=== PATIENT | female | born 1960 | race African-American/Black ===

== ENCOUNTER 2022-08-30 16:57 | Inpatient (IN) | payer MEDICARE, MEDICAID ==
[~2022-08-30] VITALS: Ht 165.1 cm; Wt 67.1 kg
[2022-08-30 00:30] VITALS: BP 165/104
[~2022-08-30 16:57] MED LIST: CLON0.1T PO; COR6 PO; DIPH25CA83 PO; REN400 PO
[2022-08-30 18:28] LABS: CHLORIDE 107 mEq/L (98-107)
[2022-08-30 18:54] LABS: BG BASE EXCESS -13.4 mmol/L (-2.0-2.0); BG CARBOXYHEMOGLOBIN 0.1 % (0.5-1.5); BG DEOXYHEMOGLOBIN 9.4 % (0.0-5.0); BG FRACTION INSPIRED OXYGEN 36; BG HCO3 ACT 10.6 mmol/L (22.0-26.0); BG METHEMOGLOBIN 0.4 % (0.0-1.5); BG OXYGEN SATURATION 90.6 % (92.0-98.5); BG OXYHEMOGLOBIN 90.1 % (94.0-97.0); BG PCO2 19.9 mmHg (35.0-45.0); BG PH 7.346 (7.350-7.450); BG PO2 68.2 mmHg (75.0-100.0); BG SAMPLE SITE RIGHT BRACHIAL; BG TOTAL HEMOGLOBIN 8.6 g/dL (12.0-18.0); BG VENT MODE NASAL CANNULA
[2022-08-30] MEDS ORDERED: ALBUTEROL (0.083%) 2.5MG/3ML NEB HHN ONE (19:00)
[2022-08-30] MEDS ORDERED: CALCIUM CHLORIDE 1GM/10ML SYR IV ONE (19:00)
[2022-08-30 19:49] LABS: MEAN CORPUSCULAR HEMOGLOBIN 28.5 pg (28.0-32.0); MEAN CORPUSCULAR VOLUME 92.6 fL (81.0-99.0); MEAN PLATELET VOLUME 9.2 fl (7.4-10.4); PLATELET 267 x1000/uL (130-400); RED BLOOD CELL COUNT 2.81 mill/uL (4.2-5.4); RED CELL DISTRIBUTION WIDTH 15.6 % (11.6-14.6)
[2022-08-30] MEDS ORDERED: NICARDIPINE 40MG/200ML PREMIX 200 ML IV SCH (20:00)
[2022-08-30 20:28] LABS: INR 1.2; PARTIAL THROMBOPLASTIN TIME 34.5 sec (23.4-31.0); PROTHROMBIN TIME 12.9 sec (9.6-11.0)
[2022-08-30 21:12] LABS: PLATELET ESTIMATE NORMAL
[2022-08-30] MEDS ORDERED: SODIUM BICARBONATE 8.4% 1 MEQ/ML 50ML SYR IV NR (22:15)
[2022-08-30] MEDS ORDERED: MANNITOL 12.5G (25%) VIAL 50ML IV SCH (22:30)
[2022-08-30] MEDS ORDERED: GUAIFENESIN 200MG/10ML SUGAR FREE UDC PO PRN (22:45)
[2022-08-30] MEDS ORDERED: DOCUSATE SODIUM 100MG CAPSULE PO PRN (22:45)
[2022-08-30] MEDS ORDERED: ACETAMINOPHEN 325MG TABLET PO PRN (22:45)
[2022-08-30 23:12] LABS: HEPATITIS B SURFACE AB 582.2 mIU/mL
[2022-08-30 23:22] LABS: HEPATITIS B SURFACE ANTIGEN NEGATIVE
[2022-08-31] VITALS (71 sets, daily range): BP systolic 108–225; BP diastolic 64–155
[2022-08-31 00:14] LABS: TOTAL IRON BINDING CAPACITY 266 ug/dL (250-450)
[2022-08-31] MEDS ORDERED: DIPHENHYDRAMINE 50MG/ML VIAL IV NR (01:00)
[2022-08-31 01:42] LABS: FOLIC ACID (FOLATE) SERUM 13.3 ng/mL (>5.38)
[2022-08-31 05:42] LABS: BASOPHILS % 0.8 % (0.0-2.0); EOSINOPHILS % 0.5 % (0.0-5.0); HEMATOCRIT. 21.9 % (36.0-48.0); HEMOGLOBIN. 7.3 g/dL (12.0-16.0); LYMPHOCYTES % 7.8 % (20.0-50.0); MEAN CORPUSCULAR HEMOGLOBIN 28.3 pg (28.0-32.0); MEAN CORPUSCULAR VOLUME 84.7 fL (81.0-99.0); MEAN PLATELET VOLUME 8.5 fl (7.4-10.4); MONOCYTES % 7.5 % (2.0-8.0); NEUTROPHILS % 83.4 % (40.0-76.0); PLATELET 277 x1000/uL (130-400); RED BLOOD CELL COUNT 2.58 mill/uL (4.2-5.4)
[2022-08-31 05:46] LABS: CHLORIDE 101 mEq/L (98-107)
[2022-08-31 06:04] LABS: CREATINE KINASE 129 IU/L (26-192); CREATINE KINASE MB FRACTION 3.4 ng/mL (0.5-3.6); PHOSPHORUS 5.9 mg/dL (2.5-4.9); T4 FREE 1.11 ng/dL (0.76-1.46)
[2022-08-31] MEDS ORDERED: NALOXONE HCL 0.4MG/ML VIAL IV PRN (07:45)
[2022-08-31] MEDS: MORPHINE SULFATE 2 MG/ML CPJ (NOT FOR IM USE) IV PRN ×3 (08:28→23:21)
[2022-08-31] MEDS ORDERED: NICARDIPINE 100 MG in SODIUM CHLORIDE 0.9% 60 ML IV PRN (09:00)
[2022-08-31] MEDS ORDERED: ASPIRIN 81MG TABLET PO SCH (09:00)
[2022-08-31] MEDS ORDERED: ENOXAPARIN 30MG/0.3ML SYR SUBCUT SCH (09:00)
[2022-08-31] MEDS ORDERED: CARVEDILOL 6.25 MG TABLET PO SCH (09:00)
[2022-08-31] MEDS: CLONIDINE 0.1MG TABLET PO SCH ×3 (09:29→17:18)
[2022-08-31] MEDS ORDERED: AMLODIPINE 5MG TABLET PO SCH (10:15)
[2022-08-31] MEDS ORDERED: BUDESONIDE 0.5MG/2ML NEB HHN SCH (11:15)
[2022-08-31] MEDS ORDERED: FERROUS SULFATE 325MG TABLET PO SCH (12:00)
[2022-08-31] MEDS: AZITHROMYCIN 500 MG in DEXT 5% WATER 250 ML IV SCH (13:05)
[2022-08-31] MEDS: HYDRALAZINE HCL 50MG TABLET PO SCH ×2 (13:47→21:41)
[2022-08-31] MEDS: PANTOPRAZOLE SODIUM 40 MG/VIAL IV SCH (13:47)
[2022-08-31] MEDS: IPRATROPIUM/ALBUTEROL 0.5-3(2.5)MG/3ML NEB HHN SCH ×2 (13:53→21:14)
[2022-08-31] MEDS: ASCORBIC ACID 500 MG TABLET PO SCH (17:17)
[2022-08-31] MEDS: FERROUS SULFATE 325MG TABLET PO SCH (17:17)
[2022-08-31 18:14] LABS: CREATINE KINASE MB FRACTION 2.4 ng/mL (0.5-3.6)
[2022-08-31] MEDS ORDERED: FAMOTIDINE 20MG TABLET PO SCH (21:00)
[2022-08-31] MEDS: ATORVASTATIN CALCIUM 40MG TABLET PO SCH ×2 (21:00→21:41)
[2022-08-31] MEDS: AMLODIPINE 5MG TABLET PO SCH (21:40)
[2022-09-01] VITALS (54 sets, daily range): BP systolic 109–179; BP diastolic 67–100
[2022-09-01] MEDS: IPRATROPIUM/ALBUTEROL 0.5-3(2.5)MG/3ML NEB HHN SCH ×2 (03:20→20:15)
[2022-09-01] MEDS: MORPHINE SULFATE 2 MG/ML CPJ (NOT FOR IM USE) IV PRN ×2 (05:00→22:44)
[2022-09-01 05:49] LABS: CHLORIDE 103 mEq/L (98-107)
[2022-09-01] MEDS: HYDRALAZINE HCL 50MG TABLET PO SCH ×3 (06:00→21:19)
[2022-09-01] MEDS: FERROUS SULFATE 325MG TABLET PO SCH ×2 (06:39→18:09)
[2022-09-01] MEDS: ASCORBIC ACID 500 MG TABLET PO SCH ×2 (06:40→18:09)
[2022-09-01 07:15] LABS: PHOSPHORUS 8.6 mg/dL (2.5-4.9)
[2022-09-01] MEDS: CLONIDINE 0.1MG TABLET PO SCH ×3 (07:53→18:09)
[2022-09-01] MEDS: PANTOPRAZOLE SODIUM 40 MG/VIAL IV SCH (07:53)
[2022-09-01] MEDS: AMLODIPINE 5MG TABLET PO SCH ×2 (07:54→21:20)
[2022-09-01] MEDS: FOLIC ACID/VITAMIN B COMP W-C TABLET PO SCH (07:54)
[2022-09-01] MEDS: CALCIUM ACETATE 667MG CAPSULE PO SCH ×3 (07:54→18:09)
[2022-09-01] MEDS: DIPHENHYDRAMINE 50MG/ML VIAL IV PRN ×2 (08:45→23:56)
[2022-09-01] MEDS ORDERED: ZINC OXIDE 20% OINT 30GM TOP SCH (09:15)
[2022-09-01 10:27] LABS: BASOPHILS % 1.1 % (0.0-2.0); EOSINOPHILS % 10.1 % (0.0-5.0); LYMPHOCYTES % 23.4 % (20.0-50.0); MEAN CORPUSCULAR HEMOGLOBIN 28.4 pg (28.0-32.0); MEAN CORPUSCULAR VOLUME 85.8 fL (81.0-99.0); MEAN PLATELET VOLUME 8.8 fl (7.4-10.4); MONOCYTES % 9.7 % (2.0-8.0); NEUTROPHILS % 55.7 % (40.0-76.0); PLATELET 193 x1000/uL (130-400); RED BLOOD CELL COUNT 1.93 mill/uL (4.2-5.4); RED CELL DISTRIBUTION WIDTH 15.1 % (11.6-14.6)
[2022-09-01 10:34] LABS: HEMATOCRIT. 16.6 % (36.0-48.0); HEMOGLOBIN. 5.5 g/dL (12.0-16.0)
[2022-09-01 12:51] LABS: BG BASE EXCESS 1.3 mmol/L (-2.0-2.0); BG CARBOXYHEMOGLOBIN 0.4 % (0.5-1.5); BG DEOXYHEMOGLOBIN 3.9 % (0.0-5.0); BG HCO3 ACT 25.1 mmol/L (22.0-26.0); BG METHEMOGLOBIN 0.2 % (0.0-1.5); BG OXYGEN SATURATION 96.1 % (92.0-98.5); BG OXYHEMOGLOBIN 95.5 % (94.0-97.0); BG PCO2 35.5 mmHg (35.0-45.0); BG PH 7.467 (7.350-7.450); BG PO2 86.4 mmHg (75.0-100.0); BG SAMPLE SITE RIGHT BRACHIAL; BG TOTAL HEMOGLOBIN 6.9 g/dL (12.0-18.0); BG VENT MODE NASAL CANNULA
[2022-09-01] MEDS: AZITHROMYCIN 500 MG in DEXT 5% WATER 250 ML IV SCH (13:15)
[2022-09-01] MEDS: ATORVASTATIN CALCIUM 40MG TABLET PO SCH (21:20)
[2022-09-01 22:01] LABS: HEMATOCRIT 21.8 % (36.0-48.0); HEMOGLOBIN 7.3 g/dL (12.0-16.0)
[2022-09-02] VITALS (50 sets, daily range): BP systolic 139–188; BP diastolic 58–111
[2022-09-02] MEDS ORDERED: DEXT 5%/0.9% NACL 1,000 ML IV SCH (00:01)
[2022-09-02] MEDS: MORPHINE SULFATE 2 MG/ML CPJ (NOT FOR IM USE) IV PRN ×3 (02:45→22:22)
[2022-09-02] MEDS: IPRATROPIUM/ALBUTEROL 0.5-3(2.5)MG/3ML NEB HHN SCH ×2 (03:05→22:00)
[2022-09-02 04:39] LABS: BASOPHILS % 0.9 % (0.0-2.0); EOSINOPHILS % 13.9 % (0.0-5.0); HEMATOCRIT. 26.9 % (36.0-48.0); LYMPHOCYTES % 13.1 % (20.0-50.0); MEAN CORPUSCULAR HEMOGLOBIN 28.9 pg (28.0-32.0); MEAN CORPUSCULAR VOLUME 86.7 fL (81.0-99.0); MEAN PLATELET VOLUME 8.8 fl (7.4-10.4); MONOCYTES % 8.9 % (2.0-8.0); NEUTROPHILS % 63.2 % (40.0-76.0); PLATELET 208 x1000/uL (130-400); RED BLOOD CELL COUNT 3.11 mill/uL (4.2-5.4); RED CELL DISTRIBUTION WIDTH 14.6 % (11.6-14.6)
[2022-09-02 04:47] LABS: INR 1.1; PROTHROMBIN TIME 11.9 sec (9.6-11.0)
[2022-09-02 05:11] LABS: CHLORIDE 104 mEq/L (98-107); PHOSPHORUS 6.8 mg/dL (2.5-4.9)
[2022-09-02] MEDS: HYDRALAZINE HCL 50MG TABLET PO SCH ×4 (06:00→21:27)
[2022-09-02] MEDS: FERROUS SULFATE 325MG TABLET PO SCH ×2 (06:45→17:45)
[2022-09-02] MEDS: ASCORBIC ACID 500 MG TABLET PO SCH ×2 (06:45→17:45)
[2022-09-02] MEDS ORDERED: HYDRALAZINE 20MG/ML VIAL IV SCH (08:00)
[2022-09-02] MEDS: PANTOPRAZOLE SODIUM 40 MG/VIAL IV SCH (08:46)
[2022-09-02] MEDS: CLONIDINE 0.1MG TABLET PO SCH ×3 (09:00→17:46)
[2022-09-02] MEDS: CALCIUM ACETATE 667MG CAPSULE PO SCH ×3 (09:00→17:45)
[2022-09-02] MEDS: AMLODIPINE 5MG TABLET PO SCH ×3 (09:00→21:22)
[2022-09-02] MEDS: FOLIC ACID/VITAMIN B COMP W-C TABLET PO SCH (09:00)
[2022-09-02] MEDS: AZITHROMYCIN 500 MG in DEXT 5% WATER 250 ML IV SCH (12:23)
[2022-09-02] MEDS: ATORVASTATIN CALCIUM 40MG TABLET PO SCH (21:23)
[2022-09-02] MEDS: CLONIDINE 0.1MG TABLET PO PRN (22:22)
[2022-09-03] VITALS (41 sets, daily range): BP systolic 128–169; BP diastolic 78–104
[2022-09-03] MEDS ORDERED: DEXT 5%/0.9% NACL 1,000 ML IV SCH (00:01)
[2022-09-03] MEDS: IPRATROPIUM/ALBUTEROL 0.5-3(2.5)MG/3ML NEB HHN SCH ×4 (03:25→20:50)
[2022-09-03 03:47] LABS: BASOPHILS % 1.1 % (0.0-2.0); EOSINOPHILS % 17.5 % (0.0-5.0); HEMOGLOBIN. 10.3 g/dL (12.0-16.0); LYMPHOCYTES % 14.3 % (20.0-50.0); MEAN CORPUSCULAR HEMOGLOBIN 29.7 pg (28.0-32.0); MEAN CORPUSCULAR VOLUME 86.5 fL (81.0-99.0); MEAN PLATELET VOLUME 8.5 fl (7.4-10.4); MONOCYTES % 7.7 % (2.0-8.0); NEUTROPHILS % 59.4 % (40.0-76.0); PLATELET 228 x1000/uL (130-400); RED BLOOD CELL COUNT 3.47 mill/uL (4.2-5.4); RED CELL DISTRIBUTION WIDTH 14.4 % (11.6-14.6)
[2022-09-03 03:48] LABS: INR 1.1; PROTHROMBIN TIME 11.9 sec (9.6-11.0)
[2022-09-03 03:53] LABS: CHLORIDE 105 mEq/L (98-107)
[2022-09-03] MEDS: DIPHENHYDRAMINE 50MG/ML VIAL IV PRN ×2 (04:06→15:31)
[2022-09-03] MEDS: CLONIDINE 0.1MG TABLET PO PRN (04:18)
[2022-09-03] MEDS: MORPHINE SULFATE 2 MG/ML CPJ (NOT FOR IM USE) IV PRN (04:18)
[2022-09-03] MEDS: HYDRALAZINE HCL 50MG TABLET PO SCH (06:00)
[2022-09-03] MEDS: FERROUS SULFATE 325MG TABLET PO SCH ×2 (06:18→10:10)
[2022-09-03] MEDS: ASCORBIC ACID 500 MG TABLET PO SCH ×2 (06:18→10:10)
[2022-09-03] MEDS ORDERED: HYDRALAZINE 20MG/ML VIAL IV PRN (07:30)
[2022-09-03] MEDS ORDERED: DEXT 5%/0.45% NACL 1000ML 1,000 ML IV SCH (08:30)
[2022-09-03] MEDS: AMLODIPINE 5MG TABLET PO SCH ×2 (09:00→21:51)
[2022-09-03] MEDS: CALCIUM ACETATE 667MG CAPSULE PO SCH ×3 (09:00→17:53)
[2022-09-03] MEDS: CLONIDINE 0.1MG TABLET PO SCH ×3 (09:00→17:53)
[2022-09-03] MEDS: FOLIC ACID/VITAMIN B COMP W-C TABLET PO SCH (09:00)
[2022-09-03] MEDS: PANTOPRAZOLE SODIUM 40 MG/VIAL IV SCH (09:37)
[2022-09-03] MEDS ORDERED: DEXAMETHASONE 4MG/ML 1ML VIAL ONE (13:17)
[2022-09-03] MEDS ORDERED: ONDANSETRON HCL 4MG/2ML INJ ONE (13:17)
[2022-09-03] MEDS ORDERED: MIDAZOLAM HCL 2 MG/2 ML VIAL ONE (13:18)
[2022-09-03] MEDS ORDERED: PROPOFOL 200MG/20ML VIAL IV ONE (13:21)
[2022-09-03] MEDS ORDERED: LIDOCAINE HCL 1% 10 MG/ML 10ML VIAL ONE (13:21)
[2022-09-03] MEDS ORDERED: LIDOCAINE HCL 1% 20ML VIAL (Pyxis) INJ ONE (14:31)
[2022-09-03] MEDS ORDERED: FENTANYL CITRATE/PF 50MCG/ML 2ML VIAL ONE (14:48)
[2022-09-03] MEDS ORDERED: ACETAMINOPHEN 325MG TABLET PO PRN (15:15)
[2022-09-03] MEDS ORDERED: ATROPINE SULFATE 1MG/10ML SYR IV PRN (15:15)
[2022-09-03] MEDS: LORAZEPAM 2MG/ML CPJ IV PRN (16:56)
[2022-09-03] MEDS: SUCRALFATE 1 G/10 ML UDC PO SCH ×2 (17:53→21:48)
[2022-09-03] MEDS: ATORVASTATIN CALCIUM 40MG TABLET PO SCH (21:48)
[2022-09-04] VITALS (49 sets, daily range): BP systolic 101–179; BP diastolic 55–106
[2022-09-04] MEDS: LORAZEPAM 2MG/ML CPJ IV PRN ×3 (00:12→18:06)
[2022-09-04] MEDS: IPRATROPIUM/ALBUTEROL 0.5-3(2.5)MG/3ML NEB HHN SCH ×3 (02:12→14:40)
[2022-09-04 05:13] LABS: BASOPHILS % 0.5 % (0.0-2.0); EOSINOPHILS % 1.2 % (0.0-5.0); HEMATOCRIT. 26.4 % (36.0-48.0); LYMPHOCYTES % 11.2 % (20.0-50.0); MEAN CORPUSCULAR HEMOGLOBIN 29.3 pg (28.0-32.0); MEAN CORPUSCULAR VOLUME 85.6 fL (81.0-99.0); MEAN PLATELET VOLUME 8.6 fl (7.4-10.4); MONOCYTES % 7.7 % (2.0-8.0); NEUTROPHILS % 79.4 % (40.0-76.0); PLATELET 231 x1000/uL (130-400); RED BLOOD CELL COUNT 3.08 mill/uL (4.2-5.4); RED CELL DISTRIBUTION WIDTH 14.1 % (11.6-14.6)
[2022-09-04] MEDS: MORPHINE SULFATE 2 MG/ML CPJ (NOT FOR IM USE) IV PRN ×2 (05:15→09:21)
[2022-09-04] MEDS: SUCRALFATE 1 G/10 ML UDC PO SCH ×4 (06:20→21:59)
[2022-09-04] MEDS: FERROUS SULFATE 325MG TABLET PO SCH ×2 (07:00→16:09)
[2022-09-04] MEDS: ASCORBIC ACID 500 MG TABLET PO SCH ×2 (07:00→16:09)
[2022-09-04] MEDS ORDERED: HYDROCODONE/ACETAMINOPHEN 5/325MG TABLET PO PRN (08:45)
[2022-09-04] MEDS: CALCIUM ACETATE 667MG CAPSULE PO SCH ×3 (08:57→16:09)
[2022-09-04] MEDS: FOLIC ACID/VITAMIN B COMP W-C TABLET PO SCH (08:57)
[2022-09-04] MEDS: AMLODIPINE 2.5MG TABLET PO SCH ×2 (08:57→22:00)
[2022-09-04] MEDS: PANTOPRAZOLE SODIUM 40 MG/VIAL IV SCH (09:21)
[2022-09-04] MEDS: DIPHENHYDRAMINE 50MG/ML VIAL IV PRN ×3 (09:59→23:57)
[2022-09-04] MEDS ORDERED: IOHEXOL-350 100 ML BOTTLE ONE (12:37)
[2022-09-04 13:22] LABS: BASOPHILS % 0.4 % (0.0-2.0); EOSINOPHILS % 6.3 % (0.0-5.0); HEMATOCRIT. 27.1 % (36.0-48.0); LYMPHOCYTES % 11.2 % (20.0-50.0); MEAN CORPUSCULAR HEMOGLOBIN 29.1 pg (28.0-32.0); MEAN CORPUSCULAR VOLUME 87.2 fL (81.0-99.0); MEAN PLATELET VOLUME 8.2 fl (7.4-10.4); MONOCYTES % 5.8 % (2.0-8.0); NEUTROPHILS % 76.3 % (40.0-76.0); PLATELET 225 x1000/uL (130-400); RED BLOOD CELL COUNT 3.11 mill/uL (4.2-5.4); RED CELL DISTRIBUTION WIDTH 14.3 % (11.6-14.6)
[2022-09-04] MEDS: CLONIDINE 0.1MG TABLET PO SCH (16:09)
[2022-09-04] MEDS: CLONIDINE 0.1MG TABLET PO PRN (19:44)
[2022-09-04] MEDS: ATORVASTATIN CALCIUM 40MG TABLET PO SCH (22:00)
[2022-09-05] VITALS (47 sets, daily range): BP systolic 127–185; BP diastolic 75–118
[2022-09-05] MEDS: IPRATROPIUM/ALBUTEROL 0.5-3(2.5)MG/3ML NEB HHN SCH ×3 (01:00→14:00)
[2022-09-05] MEDS: CLONIDINE 0.1MG TABLET PO SCH ×2 (05:13→16:43)
[2022-09-05] MEDS: THROAT LOZENGES-BENZOCAINE/MENTH/CETYLPYRD CL LOZENGES MM PRN ×2 (05:14→13:13)
[2022-09-05 05:41] LABS: BASOPHILS % 0.7 % (0.0-2.0); EOSINOPHILS % 11.1 % (0.0-5.0); HEMATOCRIT. 25.9 % (36.0-48.0); HEMOGLOBIN. 8.7 g/dL (12.0-16.0); MEAN CORPUSCULAR HEMOGLOBIN 29.1 pg (28.0-32.0); MEAN CORPUSCULAR VOLUME 86.5 fL (81.0-99.0); MEAN PLATELET VOLUME 8.2 fl (7.4-10.4); MONOCYTES % 7.4 % (2.0-8.0); NEUTROPHILS % 67.8 % (40.0-76.0); PLATELET 215 x1000/uL (130-400); RED BLOOD CELL COUNT 2.99 mill/uL (4.2-5.4); RED CELL DISTRIBUTION WIDTH 14.2 % (11.6-14.6)
[2022-09-05] MEDS: SUCRALFATE 1 G/10 ML UDC PO SCH ×4 (06:11→21:51)
[2022-09-05] MEDS: CALCIUM ACETATE 667MG CAPSULE PO SCH ×3 (10:09→16:43)
[2022-09-05] MEDS: FOLIC ACID/VITAMIN B COMP W-C TABLET PO SCH (10:09)
[2022-09-05] MEDS: ASCORBIC ACID 500 MG TABLET PO SCH ×2 (10:09→16:43)
[2022-09-05] MEDS: PANTOPRAZOLE SODIUM 40 MG/VIAL IV SCH (10:09)
[2022-09-05] MEDS: AMLODIPINE 2.5MG TABLET PO SCH ×2 (10:10→21:51)
[2022-09-05] MEDS: FERROUS SULFATE 325MG TABLET PO SCH ×2 (10:10→16:43)
[2022-09-05] MEDS: DIPHENHYDRAMINE 50MG/ML VIAL IV PRN ×2 (10:56→15:17)
[2022-09-05] MEDS: MORPHINE SULFATE 2 MG/ML CPJ (NOT FOR IM USE) IV PRN ×2 (13:13→22:05)
[2022-09-05] MEDS: LORAZEPAM 2MG/ML CPJ IV PRN (17:09)
[2022-09-05] MEDS: ATORVASTATIN CALCIUM 40MG TABLET PO SCH (21:51)
[2022-09-06] VITALS: BP 159/98
[2022-09-06] MEDS: CLONIDINE 0.1MG TABLET PO PRN (01:10)
[2022-09-06] MEDS: DIPHENHYDRAMINE 50MG/ML VIAL IV PRN ×3 (01:10→20:27)
[2022-09-06] MEDS: THROAT LOZENGES-BENZOCAINE/MENTH/CETYLPYRD CL LOZENGES MM PRN (01:24)
[2022-09-06 04:00] VITALS: BP 133/77
[2022-09-06] MEDS: SUCRALFATE 1 G/10 ML UDC PO SCH ×4 (06:11→20:27)
[2022-09-06] MEDS: CLONIDINE 0.1MG TABLET PO SCH ×2 (06:11→17:57)
[2022-09-06] MEDS: MORPHINE SULFATE 2 MG/ML CPJ (NOT FOR IM USE) IV PRN ×2 (06:12→23:08)
[2022-09-06] MEDS: ASCORBIC ACID 500 MG TABLET PO SCH ×2 (07:39→17:56)
[2022-09-06] MEDS: FERROUS SULFATE 325MG TABLET PO SCH ×2 (07:39→17:56)
[2022-09-06 08:00] VITALS: BP 148/91
[2022-09-06] MEDS: FOLIC ACID/VITAMIN B COMP W-C TABLET PO SCH (08:55)
[2022-09-06] MEDS: AMLODIPINE 2.5MG TABLET PO SCH (08:55)
[2022-09-06] MEDS: PANTOPRAZOLE SODIUM 40 MG/VIAL IV SCH (08:55)
[2022-09-06] MEDS: CALCIUM ACETATE 667MG CAPSULE PO SCH ×3 (08:58→17:57)
[2022-09-06 12:00] VITALS: BP 149/93
[2022-09-06 12:27] LABS: BASOPHILS % 0.5 % (0.0-2.0); HEMATOCRIT. 28.8 % (36.0-48.0); HEMOGLOBIN. 9.6 g/dL (12.0-16.0); LYMPHOCYTES % 12.4 % (20.0-50.0); MEAN CORPUSCULAR HEMOGLOBIN 28.9 pg (28.0-32.0); MEAN CORPUSCULAR VOLUME 86.5 fL (81.0-99.0); MEAN PLATELET VOLUME 8.6 fl (7.4-10.4); MONOCYTES % 8.2 % (2.0-8.0); NEUTROPHILS % 63.9 % (40.0-76.0); PLATELET 240 x1000/uL (130-400); RED BLOOD CELL COUNT 3.33 mill/uL (4.2-5.4); RED CELL DISTRIBUTION WIDTH 14.5 % (11.6-14.6)
[2022-09-06] MEDS ORDERED: SORBITOL 70% SOLN 30ML PO NR (12:30)
[2022-09-06] MEDS ORDERED: BISACODYL 5MG TABLET PO NR (12:30)
[2022-09-06] MEDS: LORAZEPAM 2MG/ML CPJ IV PRN ×2 (13:05→21:53)
[2022-09-06 16:00] VITALS: BP 143/92
[2022-09-06] MEDS ORDERED: NA PHOS,M-B/NA PHOS,DI-BA ENEMA 118ML PR ONE (17:45)
[2022-09-06 20:00] VITALS: BP 149/89
[2022-09-06] MEDS: ATORVASTATIN CALCIUM 40MG TABLET PO SCH (20:27)
[2022-09-06] MEDS: AMLODIPINE 5MG TABLET PO SCH (20:27)
[2022-09-07] VITALS: BP 146/88
[2022-09-07 04:00] VITALS: BP 160/95
[2022-09-07 05:29] LABS: BASOPHILS % 0.6 % (0.0-2.0); EOSINOPHILS % 13.9 % (0.0-5.0); HEMATOCRIT. 30.2 % (36.0-48.0); HEMOGLOBIN. 10.1 g/dL (12.0-16.0); LYMPHOCYTES % 17.2 % (20.0-50.0); MEAN CORPUSCULAR HEMOGLOBIN 28.7 pg (28.0-32.0); MEAN CORPUSCULAR VOLUME 86.1 fL (81.0-99.0); MEAN PLATELET VOLUME 8.5 fl (7.4-10.4); MONOCYTES % 8.9 % (2.0-8.0); NEUTROPHILS % 59.4 % (40.0-76.0); PLATELET 240 x1000/uL (130-400); RED CELL DISTRIBUTION WIDTH 14.2 % (11.6-14.6)
[2022-09-07] MEDS: SUCRALFATE 1 G/10 ML UDC PO SCH ×4 (05:45→21:08)
[2022-09-07] MEDS: CLONIDINE 0.1MG TABLET PO SCH ×2 (05:46→12:25)
[2022-09-07] MEDS: LORAZEPAM 2MG/ML CPJ IV PRN ×2 (05:46→20:48)
[2022-09-07 06:12] LABS: PHOSPHORUS 5.6 mg/dL (2.5-4.9)
[2022-09-07 08:00] VITALS: BP 141/91
[2022-09-07] MEDS: PANTOPRAZOLE SODIUM 40 MG/VIAL IV SCH (09:01)
[2022-09-07] MEDS: ASCORBIC ACID 500 MG TABLET PO SCH ×2 (09:01→16:39)
[2022-09-07] MEDS: FERROUS SULFATE 325MG TABLET PO SCH ×2 (09:01→16:39)
[2022-09-07] MEDS: AMLODIPINE 5MG TABLET PO SCH ×2 (09:02→21:08)
[2022-09-07] MEDS: CALCIUM ACETATE 667MG CAPSULE PO SCH ×3 (09:02→16:40)
[2022-09-07] MEDS: FOLIC ACID/VITAMIN B COMP W-C TABLET PO SCH (09:02)
[2022-09-07 12:00] VITALS: BP 137/83
[2022-09-07] MEDS: DIPHENHYDRAMINE 50MG/ML VIAL IV PRN ×2 (12:33→20:04)
[2022-09-07] MEDS ORDERED: SORBITOL 70% SOLN 30ML PO NR (15:15)
[2022-09-07 16:00] VITALS: BP 166/102
[2022-09-07] MEDS: CLONIDINE 0.1MG TABLET PO PRN (16:39)
[2022-09-07 20:05] VITALS: BP 163/101
[2022-09-07] MEDS: ATORVASTATIN CALCIUM 40MG TABLET PO SCH ×2 (21:00→21:08)
[2022-09-08] VITALS (15 sets, daily range): BP systolic 137–168; BP diastolic 76–111
[2022-09-08] MEDS: CLONIDINE 0.1MG TABLET PO SCH ×3 (01:55→18:23)
[2022-09-08] MEDS: DIPHENHYDRAMINE 50MG/ML VIAL IV PRN ×2 (03:52→12:40)
[2022-09-08] MEDS: SUCRALFATE 1 G/10 ML UDC PO SCH ×3 (07:00→17:05)
[2022-09-08] MEDS: FERROUS SULFATE 325MG TABLET PO SCH ×2 (07:36→18:20)
[2022-09-08] MEDS: ASCORBIC ACID 500 MG TABLET PO SCH ×2 (07:36→18:20)
[2022-09-08] MEDS: CALCIUM ACETATE 667MG CAPSULE PO SCH ×4 (09:00→17:05)
[2022-09-08] MEDS: PANTOPRAZOLE SODIUM 40 MG/VIAL IV SCH (09:56)
[2022-09-08] MEDS: FOLIC ACID/VITAMIN B COMP W-C TABLET PO SCH (09:56)
[2022-09-08] MEDS: AMLODIPINE 5MG TABLET PO SCH (09:57)
[2022-09-08] MEDS: MORPHINE SULFATE 2 MG/ML CPJ (NOT FOR IM USE) IV PRN (10:27)
[2022-09-08] MEDS ORDERED: SORBITOL 70% SOLN 30ML PO NR (15:30)
[2022-09-08 16:15] LABS: BASOPHILS % 0.6 % (0.0-2.0); EOSINOPHILS % 13.7 % (0.0-5.0); HEMATOCRIT. 31.3 % (36.0-48.0); HEMOGLOBIN. 10.5 g/dL (12.0-16.0); LYMPHOCYTES % 11.2 % (20.0-50.0); MEAN CORPUSCULAR VOLUME 86.6 fL (81.0-99.0); MEAN PLATELET VOLUME 8.3 fl (7.4-10.4); MONOCYTES % 8.2 % (2.0-8.0); NEUTROPHILS % 66.3 % (40.0-76.0); PLATELET 260 x1000/uL (130-400); RED BLOOD CELL COUNT 3.61 mill/uL (4.2-5.4); RED CELL DISTRIBUTION WIDTH 13.9 % (11.6-14.6)
== END 2022-09-08 19:47 | disposition home or self-care (01) | DRG 189 ==
LOC: ER 16:57 → MICUSO 19:50 → EDBEDREQTM 19:51 → EDBEDREQ 19:51 → EDBEDREQSVC 19:51 → ENRESERV 23:43 → MICUSO 08-31 01:27 → 3WST 09-05 16:18
PROVIDERS: ADMIT Internal Medicine; ATTEND Internal Medicine
PROC: 5A09357 Assistance with Respiratory Ventilation, Less than 24 Consecutive Hours, Continuous Positive Airway Pressure (ICD-10-PCS; 2022-08-30)
PROC: 5A1D70Z Performance of Urinary Filtration, Intermittent, Less than 6 Hours Per Day (ICD-10-PCS; 2022-08-30)
PROC: 02HV33Z Insertion of Infusion Device into Superior Vena Cava, Percutaneous Approach (ICD-10-PCS; 2022-08-31)
PROC: B548ZZA Ultrasonography of Superior Vena Cava, Guidance (ICD-10-PCS; 2022-08-31)
PROC: 5A1D70Z Performance of Urinary Filtration, Intermittent, Less than 6 Hours Per Day (ICD-10-PCS; 2022-08-31)
PROC: 30233N1 Transfusion of Nonautologous Red Blood Cells into Peripheral Vein, Percutaneous Approach (ICD-10-PCS; 2022-09-01)
PROC: 5A1D70Z Performance of Urinary Filtration, Intermittent, Less than 6 Hours Per Day (ICD-10-PCS; 2022-09-01)
PROC: 0DB98ZX Excision of Duodenum, Via Natural or Artificial Opening Endoscopic, Diagnostic (ICD-10-PCS; principal; 2022-09-03)
PROC: 0DB78ZX Excision of Stomach, Pylorus, Via Natural or Artificial Opening Endoscopic, Diagnostic (ICD-10-PCS; 2022-09-03)
PROC: 4A023N6 Measurement of Cardiac Sampling and Pressure, Right Heart, Percutaneous Approach (ICD-10-PCS; 2022-09-03)
PROC: 5A1D70Z Performance of Urinary Filtration, Intermittent, Less than 6 Hours Per Day (ICD-10-PCS; 2022-09-03)
PROC: 5A1D70Z Performance of Urinary Filtration, Intermittent, Less than 6 Hours Per Day (ICD-10-PCS; 2022-09-04)
PROC: 5A1D70Z Performance of Urinary Filtration, Intermittent, Less than 6 Hours Per Day (ICD-10-PCS; 2022-09-05)
PROC: 5A1D70Z Performance of Urinary Filtration, Intermittent, Less than 6 Hours Per Day (ICD-10-PCS; 2022-09-08)
DX: J96.01 Acute respiratory failure with hypoxia (principal); J18.1 Lobar pneumonia, unspecified organism; N18.6 End stage renal disease; K25.4 Chronic or unspecified gastric ulcer with hemorrhage; I13.2 Hypertensive heart and chronic kidney disease with heart failure and with stage 5 chronic kidney disease, or end stage renal disease; I31.39 Other pericardial effusion (noninflammatory); I16.9 Hypertensive crisis, unspecified; E87.20 Acidosis, unspecified; E87.5 Hyperkalemia; Z20.822 Contact with and (suspected) exposure to COVID-19; D63.8 Anemia in other chronic diseases classified elsewhere; E78.5 Hyperlipidemia, unspecified; I08.1 Rheumatic disorders of both mitral and tricuspid valves; I50.9 Heart failure, unspecified; I27.20 Pulmonary hypertension, unspecified; K57.30 Diverticulosis of large intestine without perforation or abscess without bleeding; D25.9 Leiomyoma of uterus, unspecified; K29.60 Other gastritis without bleeding; Z86.73 Personal history of transient ischemic attack (TIA), and cerebral infarction without residual deficits; Z28.310 Unvaccinated for COVID-19; Z88.0 Allergy status to penicillin; Z99.2 Dependence on renal dialysis; Z91.15 Patient's noncompliance with renal dialysis; Z91.199 Patient's noncompliance with other medical treatment and regimen due to unspecified reason; Z79.899 Other long term (current) drug therapy
CPT/HCPCS: 36415; 36573; 36600; 71045; 74174; 74176; 76604; 76700; 76857; 78580; 80048; 80053; 80061; 82375; 82550; 82553; 82607; 82728; 82746; 82805; 83540; 83550; 83605; 83735; 83880; 84100; 84145; 84439; 84443; 84484; 85014; 85018; 85025; 85379; 86706; 86803; 86850; 86870; 86900; 86920; 87340; 87426; 88305; 90935; 93005; 93306; 93451; 93970; 94640; 94660; 97161; 97165; 99291; A6261; C1725; C1893; C9113; C9803; J0360; J0456; J1100; J1200; J1644; J2060; J2150; J2250; J2270; J2405; J2704; J3010; J3490; J7042; J7060; J7626; P9016; Q9967

== ENCOUNTER 2023-11-05 16:51 | Inpatient (IN) | payer MEDICARE, MEDICAID ==
[~2023-11-05] VITALS: Ht 167.6 cm; Wt 52.6 kg
[~2023-11-05 16:51] MED LIST changes: +AMLO10TA80 PO; -CLON0.1T PO; -COR6 PO; -DIPH25CA83 PO; +LIP40 PO; +NEPVIT PO; +NIFE-33 PO; +SEVE800T8 PO
[2023-11-05 18:00] VITALS: BP 142/82; PULSE 84; RESP 19; TEMP 98
[2023-11-05] MEDS ORDERED: LORATADINE 10MG TABLET PO SCH (19:30)
[2023-11-05] MEDS ORDERED: HYDRALAZINE 20MG/ML VIAL IV PRN (19:30)
[2023-11-05] MEDS ORDERED: IPRATROPIUM/ALBUTEROL 0.5-3(2.5)MG/3ML NEB HHN PRN (19:30)
[2023-11-05 19:45] VITALS: BP 171/96; PULSE 73; RESP 20; TEMP 97.5
[2023-11-05] MEDS ORDERED: HYDRALAZINE 10 MG in SODIUM CHLORIDE 0.9% 49.5 ML IV PRN (19:45)
[2023-11-05] MEDS ORDERED: NALOXONE HCL 0.4MG/ML 1ML VIAL IV PRN (19:45)
[2023-11-05] MEDS ORDERED: MAGNESIUM/ALUMINUM HYDROXIDE/SIMETHICONE 30ML UDC PO PRN (19:45)
[2023-11-05] MEDS ORDERED: GUAIFENESIN 200MG/10ML SUGAR FREE UDC PO PRN (19:45)
[2023-11-05 20:00] VITALS: BP 176/95; PULSE 73; RESP 19; TEMP 97.6
[2023-11-05] MEDS: CLONIDINE 0.2MG TABLET PO PRN (20:23)
[2023-11-05] MEDS: ATORVASTATIN CALCIUM 40MG TABLET PO SCH (21:19)
[2023-11-05] MEDS: LEVETIRACETAM 250MG TABLET PO SCH (21:19)
[2023-11-05 22:00] VITALS: BP 123/75; PULSE 75; RESP 20; TEMP 98
[2023-11-05] MEDS: HYDRALAZINE HCL 25MG TABLET PO SCH (22:00)
[2023-11-05] MEDS: DIPHENHYDRAMINE 50MG/ML VIAL IV PRN (22:18)
[2023-11-06 07:40] LABS: CHLORIDE 98 mEq/L (98-107); POTASSIUM 4.3 mEq/L (3.5-5.1); SODIUM 136 mEq/L (136-145)
[2023-11-06 07:41] LABS: CALCIUM 7.8 mg/dL (8.7-10.4); CARBON DIOXIDE 24 mEq/L (21-32); HEMATOCRIT. 29.8 % (36.0-48.0); HEMOGLOBIN. 9.9 g/dL (12.0-16.0); MEAN CORPUSCULAR HEMOGLOBIN 27.6 pg (28.0-32.0); MEAN CORPUSCULAR HGB CONC 33.2 g/dL (31.0-37.0); MEAN CORPUSCULAR VOLUME 82.9 fL (81.0-99.0); MEAN PLATELET VOLUME 8.8 fl (7.4-10.4); PLATELET 145 x1000/uL (130-400); RED BLOOD CELL COUNT 3.59 mill/uL (4.2-5.4); RED CELL DISTRIBUTION WIDTH 18.6 % (11.6-14.6); WHITE BLOOD COUNT 3.8 x1000/uL (4.5-11.0)
[2023-11-06 07:46] LABS: GLUCOSE 93 mg/dL (70-105); UREA NITROGEN BLOOD 68 mg/dL (9-23)
[2023-11-06 07:47] LABS: DIFFERENTIAL COMMENT 1
[2023-11-06 07:48] LABS: ALANINE AMINOTRANSFERASE < 7 IU/L (10-49); ALBUMIN 3.5 g/dL (3.2-4.8); ASPARTATE AMINOTRANSFERASE 13 IU/L (<34); BILIRUBIN TOTAL 0.4 mg/dL (0.1-1.0)
[2023-11-06 07:49] LABS: PROTEIN TOTAL 5.7 g/dL (6.0-8.3)
[2023-11-06 07:52] LABS: CREATININE 12.1 mg/dL (0.6-1.0)
[2023-11-06 08:00] VITALS: BP 132/66; PULSE 72; RESP 20; TEMP 98.2
[2023-11-06] MEDS ORDERED: FAMOTIDINE 20MG/2ML VIAL IV SCH (09:00)
[2023-11-06] MEDS: FOLIC ACID 1MG TABLET PO SCH (09:03)
[2023-11-06] MEDS: NIFEDIPINE XL 30MG TAB PO SCH (09:03)
[2023-11-06] MEDS: SEVELAMER CARBONATE 800 MG TABLET PO SCH (09:03)
[2023-11-06 12:00] VITALS: BP 120/60; PULSE 76; RESP 20; TEMP 97.7
[2023-11-06] MEDS: HYDROCODONE/ACETAMINOPHEN 7.5/325MG TABLET PO PRN (13:51)
[2023-11-06 15:09] LABS: ANISOCYTOSIS 2+; PLATELET ESTIMATE NORMAL
[2023-11-06 16:00] VITALS: BP 130/65; PULSE 70; RESP 20; TEMP 96.6
[2023-11-06 20:00] VITALS: BP 165/102; PULSE 87; RESP 19; TEMP 97.5
[2023-11-06] MEDS: EPOETIN ALFA 4000UNITS/ML VIAL SUBCUT SCH (20:15)
[2023-11-06] MEDS: FAMOTIDINE 20MG TABLET PO SCH (20:15)
[2023-11-07] VITALS (15 sets, daily range): BP systolic 128–161; BP diastolic 8–94; PULSE 74–87; RESP 16–20; TEMP 97–101.7
[2023-11-07 07:25] LABS: BASOPHILS % 0.5 % (0.0-2.0); EOSINOPHILS % 14.4 % (0.0-5.0); HEMATOCRIT. 28.8 % (36.0-48.0); HEMOGLOBIN. 9.7 g/dL (12.0-16.0); LYMPHOCYTES % 14.9 % (20.0-50.0); MEAN CORPUSCULAR HEMOGLOBIN 27.9 pg (28.0-32.0); MEAN CORPUSCULAR HGB CONC 33.8 g/dL (31.0-37.0); MEAN CORPUSCULAR VOLUME 82.5 fL (81.0-99.0); MEAN PLATELET VOLUME 9.3 fl (7.4-10.4); MONOCYTES % 6.9 % (2.0-8.0); NEUTROPHILS % 63.3 % (40.0-76.0); PLATELET 145 x1000/uL (130-400); RED BLOOD CELL COUNT 3.49 mill/uL (4.2-5.4); RED CELL DISTRIBUTION WIDTH 18.5 % (11.6-14.6)
[2023-11-07 08:04] LABS: CALCIUM 7.4 mg/dL (8.7-10.4); CARBON DIOXIDE 24 mEq/L (21-32); CHLORIDE 98 mEq/L (98-107); POTASSIUM 4.3 mEq/L (3.5-5.1); SODIUM 137 mEq/L (136-145)
[2023-11-07 08:09] LABS: GLUCOSE 102 mg/dL (70-105)
[2023-11-07 08:10] LABS: UREA NITROGEN BLOOD 78 mg/dL (9-23)
[2023-11-07 08:20] LABS: HEPATITIS B SURFACE ANTIGEN NEGATIVE (Negative)
[2023-11-07 08:35] LABS: CREATININE 11.7 mg/dL (0.6-1.0)
[2023-11-07 08:38] LABS: PHOSPHORUS 8.1 mg/dL (2.5-4.9)
[2023-11-07 08:40] LABS: HEPATITIS A AB IGM NEGATIVE (Negative)
[2023-11-07 08:41] LABS: HEPATITIS B CORE AB IGM NEGATIVE (Negative)
[2023-11-07 08:42] LABS: HEPATITIS C AB NON REACTIVE (Neg) (Negative)
[2023-11-07] MEDS: ACETAMINOPHEN 325MG TABLET PO PRN (20:45)
[2023-11-08 08:00] VITALS: BP 146/79; PULSE 84; RESP 18; TEMP 99.2
[2023-11-08] MEDS: SEVELAMER CARBONATE 2.4 GM PO SCH (09:00)
[2023-11-08 11:40] LABS: CHLORIDE 97 mEq/L (98-107); POTASSIUM 3.7 mEq/L (3.5-5.1); SODIUM 134 mEq/L (136-145)
[2023-11-08 11:41] LABS: CALCIUM 7.9 mg/dL (8.7-10.4); CARBON DIOXIDE 22 mEq/L (21-32)
[2023-11-08 11:46] LABS: GLUCOSE 172 mg/dL (70-105)
[2023-11-08 11:47] LABS: CREATININE 10.4 mg/dL (0.6-1.0); UREA NITROGEN BLOOD 64 mg/dL (9-23)
[2023-11-08 11:48] LABS: ALANINE AMINOTRANSFERASE 7 IU/L (10-49); ALBUMIN 4.5 g/dL (3.2-4.8); ASPARTATE AMINOTRANSFERASE 18 IU/L (<34)
[2023-11-08 11:49] LABS: BILIRUBIN TOTAL 0.3 mg/dL (0.1-1.0); PHOSPHORUS 7.2 mg/dL (2.5-4.9); PROTEIN TOTAL 6.6 g/dL (6.0-8.3)
[2023-11-08 12:56] LABS: HEMATOCRIT 33.5 % (36.0-48.0); HEMOGLOBIN 11.2 g/dL (12.0-16.0); MEAN CORPUSCULAR HEMOGLOBIN 28.5 pg (28.0-32.0); MEAN CORPUSCULAR HGB CONC 33.4 g/dL (31.0-37.0); MEAN CORPUSCULAR VOLUME 85.4 fL (81.0-99.0); RED BLOOD CELL COUNT 3.93 mill/uL (4.2-5.4); RED CELL DISTRIBUTION WIDTH 18.7 % (11.6-14.6)
[2023-11-08 13:23] LABS: PLATELET 140 x1000/uL (130-400)
[2023-11-08] MEDS: TRAMADOL 50MG TABLET PO PRN (19:33)
[2023-11-08 20:00] VITALS: BP 159/95; PULSE 96; RESP 20; TEMP 97.6
[2023-11-08] MEDS: MELATONIN 3MG TABLET PO SCH (21:16)
[2023-11-09] VITALS (9 sets, daily range): BP systolic 102–186; BP diastolic 78–116; PULSE 97–121; RESP 16–20; TEMP 97.7–99.9
[2023-11-09 06:20] LABS: HEMATOCRIT 31.6 % (36.0-48.0); HEMOGLOBIN 10.7 g/dL (12.0-16.0); MEAN CORPUSCULAR HEMOGLOBIN 28.1 pg (28.0-32.0); MEAN CORPUSCULAR HGB CONC 33.9 g/dL (31.0-37.0); PLATELET 146 x1000/uL (130-400); RED CELL DISTRIBUTION WIDTH 18.9 % (11.6-14.6); WHITE BLOOD COUNT 4.9 x1000/uL (4.5-11.0)
[2023-11-09 06:51] LABS: CHLORIDE 96 mEq/L (98-107); POTASSIUM 4.1 mEq/L (3.5-5.1); SODIUM 135 mEq/L (136-145)
[2023-11-09 06:54] LABS: CARBON DIOXIDE 24 mEq/L (21-32)
[2023-11-09 06:55] LABS: CALCIUM 8.6 mg/dL (8.7-10.4)
[2023-11-09 06:59] LABS: GLUCOSE 135 mg/dL (70-105)
[2023-11-09 07:00] LABS: ALANINE AMINOTRANSFERASE < 7 IU/L (10-49); UREA NITROGEN BLOOD 71 mg/dL (9-23)
[2023-11-09 07:01] LABS: ALBUMIN 4.1 g/dL (3.2-4.8); ASPARTATE AMINOTRANSFERASE 16 IU/L (<34)
[2023-11-09 07:02] LABS: BILIRUBIN TOTAL 0.3 mg/dL (0.1-1.0); PROTEIN TOTAL 6.7 g/dL (6.0-8.3)
[2023-11-09] MEDS ORDERED: CLON0.3T PO (08:25)
[2023-11-09] MEDS ORDERED: ZOLP5TAB8 PO (08:25)
[2023-11-09] MEDS ORDERED: SEVE2.4P3 PO (08:25)
[2023-11-09] MEDS: CALCIUM ACETATE 667MG CAPSULE PO SCH (09:00)
[2023-11-09] MEDS: FOLIC ACID/VITAMIN B COMP W-C TABLET PO SCH (09:26)
[2023-11-09 09:35] LABS: CREATININE 11.8 mg/dL (0.6-1.0); PHOSPHORUS 8.6 mg/dL (2.5-4.9)
[2023-11-10 06:24] LABS: POTASSIUM 4.4 mEq/L (3.5-5.1)
[2023-11-10 06:25] LABS: CALCIUM 9.3 mg/dL (8.7-10.4)
[2023-11-10 06:35] LABS: BASOPHILS % 0.7 % (0.0-2.0); EOSINOPHILS % 7.3 % (0.0-5.0); HEMATOCRIT. 32.3 % (36.0-48.0); HEMOGLOBIN. 11.1 g/dL (12.0-16.0); LYMPHOCYTES % 23.3 % (20.0-50.0); MEAN CORPUSCULAR HEMOGLOBIN 28.2 pg (28.0-32.0); MEAN CORPUSCULAR HGB CONC 34.3 g/dL (31.0-37.0); MEAN CORPUSCULAR VOLUME 82.2 fL (81.0-99.0); MEAN PLATELET VOLUME 9.2 fl (7.4-10.4); MONOCYTES % 14.6 % (2.0-8.0); NEUTROPHILS % 54.1 % (40.0-76.0); PLATELET 171 x1000/uL (130-400); RED BLOOD CELL COUNT 3.92 mill/uL (4.2-5.4); RED CELL DISTRIBUTION WIDTH 18.7 % (11.6-14.6)
[2023-11-10 06:37] LABS: CREATININE 10.4 mg/dL (0.6-1.0)
[2023-11-10 07:58] VITALS: BP 147/89; PULSE 55; RESP 20; TEMP 98
[2023-11-10] MEDS: ERGOCALCIFEROL 50000UNITS CAPSULE PO SCH (09:08)
[2023-11-10] MEDS: ONDANSETRON HCL 4MG/2ML INJ IV PRN (19:00)
[2023-11-10 20:00] VITALS: BP 169/102; PULSE 104; RESP 19; TEMP 97.5
[2023-11-11] VITALS (9 sets, daily range): BP systolic 115–180; BP diastolic 36–104; PULSE 65–109; RESP 16–18; TEMP 97.5–99.9
[2023-11-11] MEDS ORDERED: NALOXONE HCL 0.4MG/ML VIAL IV PRN (11:00)
[2023-11-12 08:00] VITALS: BP_SYST 143; BP_SYST 164; BP_DIAS 91; BP_DIAS 99; PULSE 85; RESP 18; RESP 19; TEMP 97.8
[2023-11-12 13:36] VITALS: BP 157/91; PULSE 109
[2023-11-12 14:36] VITALS: BP 150/98
[2023-11-12 20:00] VITALS: BP 149/101; PULSE 81; RESP 18; TEMP 98.1
[2023-11-13] VITALS (14 sets, daily range): BP systolic 77–185; BP diastolic 51–107; PULSE 94–113; RESP 14–18; TEMP 97.8–98.6
[2023-11-13] MEDS: HYDRALAZINE HCL 50MG TABLET PO SCH (14:59)
[2023-11-13] MEDS: CLONIDINE 0.3MG TABLET PO SCH (16:37)
[2023-11-14] MEDS: ACETAMINOPHEN 325MG TABLET PO PRN (03:28)
[2023-11-14 06:25] LABS: HEMATOCRIT 30.1 % (36.0-48.0); HEMOGLOBIN 10.2 g/dL (12.0-16.0); MEAN CORPUSCULAR HEMOGLOBIN 28.3 pg (28.0-32.0); MEAN CORPUSCULAR HGB CONC 33.9 g/dL (31.0-37.0); MEAN CORPUSCULAR VOLUME 83.5 fL (81.0-99.0); PLATELET 210 x1000/uL (130-400); RED CELL DISTRIBUTION WIDTH 18.6 % (11.6-14.6); WHITE BLOOD COUNT 3.9 x1000/uL (4.5-11.0)
[2023-11-14 06:29] LABS: CALCIUM 9.5 mg/dL (8.7-10.4)
[2023-11-14 06:35] LABS: CREATININE 8.9 mg/dL (0.6-1.0)
[2023-11-14 07:50] VITALS: BP 114/66; PULSE 79; RESP 18; TEMP 98.2
[2023-11-14] MEDS ORDERED: SENNOSIDES 8.6MG TABLET PO PRN (18:15)
[2023-11-14 18:23] VITALS: BP 129/84; PULSE 94
[2023-11-14] MEDS: POLYETHYLENE GLYCOL 3350 (17GM) 1 DOSE PACK PO PRN (18:39)
[2023-11-14 20:00] VITALS: BP 157/95; PULSE 94; RESP 18; TEMP 98.1
[2023-11-15 06:49] LABS: BASOPHILS % 1.6 % (0.0-2.0); EOSINOPHILS % 10.5 % (0.0-5.0); HEMATOCRIT. 30.9 % (36.0-48.0); HEMOGLOBIN. 10.3 g/dL (12.0-16.0); LYMPHOCYTES % 22.7 % (20.0-50.0); MEAN CORPUSCULAR HEMOGLOBIN 28.2 pg (28.0-32.0); MEAN CORPUSCULAR HGB CONC 33.4 g/dL (31.0-37.0); MEAN CORPUSCULAR VOLUME 84.3 fL (81.0-99.0); MEAN PLATELET VOLUME 8.3 fl (7.4-10.4); MONOCYTES % 7.9 % (2.0-8.0); NEUTROPHILS % 57.3 % (40.0-76.0); PLATELET 219 x1000/uL (130-400); RED BLOOD CELL COUNT 3.67 mill/uL (4.2-5.4); RED CELL DISTRIBUTION WIDTH 18.6 % (11.6-14.6); WHITE BLOOD COUNT 5.5 x1000/uL (4.5-11.0)
[2023-11-15 06:57] LABS: POTASSIUM 5.3 mEq/L (3.5-5.1)
[2023-11-15 06:59] LABS: CALCIUM 9.4 mg/dL (8.7-10.4)
[2023-11-15 07:08] LABS: CREATININE 11.3 mg/dL (0.6-1.0)
[2023-11-15 08:00] VITALS: BP 154/99; PULSE 82; RESP 19; TEMP 97.6
[2023-11-15 20:00] VITALS: BP 149/79; PULSE 82; RESP 20; TEMP 97.2
[2023-11-15 22:25] VITALS: PULSE 76; RESP 18; TEMP 97.2
[2023-11-15 22:30] VITALS: BP 156/107; PULSE 79; RESP 18; TEMP 97.2
[2023-11-15 23:00] VITALS: BP 167/113; PULSE 92; RESP 19
[2023-11-15 23:30] VITALS: BP 153/104; PULSE 100; RESP 17
[2023-11-16] VITALS (8 sets, daily range): BP systolic 99–151; BP diastolic 64–107; PULSE 77–111; RESP 16–22; TEMP 97.4–97.9
[2023-11-16 11:17] LABS: HEMATOCRIT 32.8 % (36.0-48.0); HEMOGLOBIN 10.8 g/dL (12.0-16.0); MEAN CORPUSCULAR HGB CONC 32.9 g/dL (31.0-37.0); MEAN CORPUSCULAR VOLUME 85.2 fL (81.0-99.0); PLATELET 229 x1000/uL (130-400); RED BLOOD CELL COUNT 3.85 mill/uL (4.2-5.4); RED CELL DISTRIBUTION WIDTH 18.9 % (11.6-14.6); WHITE BLOOD COUNT 3.8 x1000/uL (4.5-11.0)
[2023-11-16 11:28] LABS: POTASSIUM 5.2 mEq/L (3.5-5.1)
[2023-11-16 11:29] LABS: CALCIUM 9.6 mg/dL (8.7-10.4)
[2023-11-16 11:48] LABS: CREATININE 7.5 mg/dL (0.6-1.0)
[2023-11-17] VITALS (11 sets, daily range): BP systolic 124–152; BP diastolic 85–111; PULSE 81–128; RESP 16–20; TEMP 97.6–98
[2023-11-17 05:30] LABS: BASOPHILS % 2.1 % (0.0-2.0); EOSINOPHILS % 9.2 % (0.0-5.0); HEMATOCRIT. 33.9 % (36.0-48.0); HEMOGLOBIN. 11.3 g/dL (12.0-16.0); MEAN CORPUSCULAR HGB CONC 33.4 g/dL (31.0-37.0); MEAN CORPUSCULAR VOLUME 83.7 fL (81.0-99.0); MONOCYTES % 10.8 % (2.0-8.0); NEUTROPHILS % 48.9 % (40.0-76.0); PLATELET 222 x1000/uL (130-400); RED BLOOD CELL COUNT 4.05 mill/uL (4.2-5.4); RED CELL DISTRIBUTION WIDTH 18.5 % (11.6-14.6); WHITE BLOOD COUNT 4.1 x1000/uL (4.5-11.0)
[2023-11-17 05:37] LABS: POTASSIUM 5.3 mEq/L (3.5-5.1)
[2023-11-17 05:38] LABS: CALCIUM 9.8 mg/dL (8.7-10.4)
[2023-11-17 05:52] LABS: CREATININE 9.2 mg/dL (0.6-1.0)
[2023-11-18 08:00] VITALS: BP 106/75; PULSE 85; RESP 18; TEMP 98
[2023-11-18] MEDS: TRAMADOL 50MG TABLET PO PRN (09:58)
[2023-11-18] MEDS ORDERED: NALOXONE HCL 0.4MG/ML VIAL IV PRN (13:30)
[2023-11-18 19:50] VITALS: BP 131/95; PULSE 105; RESP 20; TEMP 97.2
[2023-11-19 06:49] LABS: POTASSIUM 4.7 mEq/L (3.5-5.1)
[2023-11-19 06:53] LABS: HEMATOCRIT 35.3 % (36.0-48.0); HEMOGLOBIN 11.6 g/dL (12.0-16.0); MEAN CORPUSCULAR HEMOGLOBIN 27.7 pg (28.0-32.0); MEAN CORPUSCULAR HGB CONC 32.8 g/dL (31.0-37.0); MEAN CORPUSCULAR VOLUME 84.5 fL (81.0-99.0); PLATELET 225 x1000/uL (130-400); RED BLOOD CELL COUNT 4.18 mill/uL (4.2-5.4); RED CELL DISTRIBUTION WIDTH 19.5 % (11.6-14.6); WHITE BLOOD COUNT 4.5 x1000/uL (4.5-11.0)
[2023-11-19 07:40] LABS: CREATININE 9.7 mg/dL (0.6-1.0)
[2023-11-19 08:00] VITALS: BP 123/87; PULSE 79; RESP 20; TEMP 98.5
[2023-11-19] MEDS ORDERED: HYDR50TA39 PO (10:39)
[2023-11-19] MEDS ORDERED: CALC667C PO (10:39)
[2023-11-19 12:27] VITALS: BP 123/87; PULSE 79; TEMP 98.5; O2SAT 99
== END 2023-11-19 18:10 | DRG 64 ==
PROVIDERS: ADMIT Internal Medicine; ATTEND Internal Medicine
PROC: 5A1D70Z Performance of Urinary Filtration, Intermittent, Less than 6 Hours Per Day (ICD-10-PCS; principal; 2023-11-07)
PROC: 5A1D70Z Performance of Urinary Filtration, Intermittent, Less than 6 Hours Per Day (ICD-10-PCS; 2023-11-09)
PROC: 5A1D70Z Performance of Urinary Filtration, Intermittent, Less than 6 Hours Per Day (ICD-10-PCS; 2023-11-11)
PROC: 5A1D70Z Performance of Urinary Filtration, Intermittent, Less than 6 Hours Per Day (ICD-10-PCS; 2023-11-13)
PROC: 5A1D70Z Performance of Urinary Filtration, Intermittent, Less than 6 Hours Per Day (ICD-10-PCS; 2023-11-15)
PROC: 5A1D70Z Performance of Urinary Filtration, Intermittent, Less than 6 Hours Per Day (ICD-10-PCS; 2023-11-17)
DX: I63.9 Cerebral infarction, unspecified (principal); N18.6 End stage renal disease; I13.2 Hypertensive heart and chronic kidney disease with heart failure and with stage 5 chronic kidney disease, or end stage renal disease; Z94.0 Kidney transplant status; I69.351 Hemiplegia and hemiparesis following cerebral infarction affecting right dominant side; D64.9 Anemia, unspecified; E11.22 Type 2 diabetes mellitus with diabetic chronic kidney disease; E87.5 Hyperkalemia; G89.0 Central pain syndrome; I27.20 Pulmonary hypertension, unspecified; I50.9 Heart failure, unspecified; F39 Unspecified mood [affective] disorder; F43.21 Adjustment disorder with depressed mood; R56.9 Unspecified convulsions; M54.9 Dorsalgia, unspecified; R07.9 Chest pain, unspecified; R34 Anuria and oliguria; Z88.0 Allergy status to penicillin; Z88.6 Allergy status to analgesic agent; Z91.81 History of falling; Z99.2 Dependence on renal dialysis
CPT/HCPCS: 36415; 80048; 80053; 83036; 83735; 84100; 85018; 85025; 85027; 86705; 86706; 86709; 87340; 90935; 92523; 92610; 97110; 97112; 97116; 97150; 97163; 97166; 97530; 97535; 97542; A6261; J0885; J1200; J2405